=== PATIENT | male | born 1980 | race Caucasian/White ===

== ENCOUNTER 2019-02-01 09:03 | Day surgery (SDC) | payer OTHER, SELFPAY ==
[2019-01-21 11:51] VITALS: BMI 31.4
[2019-02-01] VITALS (9 sets, daily range): BP systolic 88–120; BP diastolic 52–72; PULSE 58–84; RESP 11–16; TEMP 36–36.7; O2SAT 73–99; BMI 31.4
[2019-02-01] MEDS: LACTATED RINGERS 1,000 ML 42 ML IV ×2 (09:40→12:29)
--- NOTE | 2019-02-01 09:50 | PM.PREOP ---
Pre-operative Note Interval Note History & Physical reviewed/Exam performed by Physician: Yes Changes to H&P: No
[2019-02-01] MEDS: MIDAZOLAM 2 MG/2 ML VIAL IV (10:30)
--- NOTE | 2019-02-01 10:44 | SUR.PREOP ---
Block start time [1030] . Monitoring initiated and maintained throughout procedure. Oxygen and medications given per anesthesiologist instructions. Patient remained stable throughout procedure, no adverse reactions noted. Block end time [1040].
[2019-02-01] MEDS: CEFAZOLIN 2 GM/100 ML FROZ.PIGGY IV (10:50)
--- NOTE | 2019-02-01 11:28 | SUR.OPER ---
Lateral on padded OR bed with downey bag positioner, head on pillow, gel axillary roll in place, bottom leg bent with gel pad under knee to foot, upper leg straight and supported with pillows. Operative arm secured in shoulder positioning suspension device. non-operative arm secured on padded arm board. Safety belt at hip, tape over blanket securing lower legs and abdomen and chest.
[2019-02-01] MEDS: BUPIVACAINE 0.5% W/ EPI (PF) VIAL 30 ML INJ (12:00)
[2019-02-01] MEDS: SODIUM CHLORIDE IRRIG SOLUTION 3,000 ML, EPINEPHrine 1 MG IRR (12:01)
--- NOTE | 2019-02-01 12:37 | PM.OP.1 ---
Operative Date/Time/Diagnoses Date of procedure: 02/01/19 Time of procedure: 12:20 Pre-op diagnosis: Right shoulder subscapularis tear with biceps subluxation Post-op diagnosis: same Procedure & Clinicians Procedure: 1. Right shoulder mini open biceps tenodesis 2. 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 His MRI reveals a tear of the upper subscapularis with dislocation of the biceps from the bicipital groove. He has agreed to the above-noted procedures after discussion the risks benefits and alternatives. Risks discussed included but were not limited to: Failure to improve pain or function, biceps deformity, nerve damage, stiffness, infection, deep venous thrombosis, pulmonary embolism, stroke, myocardial infarction, permanent paralysis and . Surgeon: Tobi Bui Material Analyst: Emilia Rodriguez Click Yes if Unassisted: No Anesthesia Type: General, Peripheral nerve block and Local Operative Notes Findings: 1. Normal glenohumeral cartilage 2. Mild degenerative fraying of the glenoid labrum 3. Intact glenohumeral ligaments 4. Tearing of the upper cm of the subscapularis 5. Subluxation and fraying of the biceps tendon 6. Intact supraspinatus 7. Intact infraspinatus 8. Normal axillary pouch 9. Bursoscopy was not performed as there were no indications Closure Type: primary Specimen(s): none sent Prosthetic devices, grafts, tissues, transplants, or devices: Implants used in this procedure included one Mitek Healix Advance BR 5.5 mm double threaded anchor and a 30 X 3.5 mm cortical Synthes screw with a small metal and larger plastic spiked soft tissue washer. Applied: implant(s) Estimated Blood Loss (mL): 15 Blood products transfused: none Procedure in detail: The patient was seen in the preoperative area where he identified the right shoulder as the operative site and this was marked with my initials. He received preoperative antibiotics and underwent an interscalene block. He was taken to the operating room and placed on the operating table in the supine position where he underwent a general anesthetic. His shoulder was then examined under anesthesia with findings of full range of motion and no evidence for pathologic laxity. He was subsequently repositioned the left lateral decubitus position with an axillary roll and padding for all pressure points. He was stabilized in this position with the downey bag and adhesive tape. The right arm was prepared from the fingertips to the base the neck with ChloraPrep in the usual fashion and draped through sterile drapes. The arm was then placed in 10 lb of balanced skin suspension. Subcutaneous landmarks were outlined on the skin with a marking pen and portal sites were selected. Posterior portal was created and the arthroscope inserted in the glenohumeral joint. Diagnostic arthroscopy ensued with result given above. After confirming the diagnosis an anterior superior portal was created in the rotator interval and a 5.5 mm working cannula inserted. The shaver and arthroscopic scissors were used to perform a biceps tenotomy. The rotator interval tissue was then excised to allow subscapularis repair. A 2nd, larger, 8.0 mm cannula was then inserted more medially in the rotator interval. The smaller initial cannula was used to place an anchor in the prepared upper lesser tuberosity. Using a penetrating suture grasper the sutures were placed through the subscapularis which was advanced into its anatomic footprint. The sutures were tied and cut. At this point all arthroscopic equipment was removed. The arm was taken out of traction and held in a fully supinated position. The upper portion of the biceps was palpated just as it went beneath the deltoid. A 1 in incision was created along the lower border of the deltoid. Muscle fascia was incised. The cephalic vein was identified retracted laterally. The biceps was identified and its tendon pulled into the distal wound. The anterior surface of the humerus was prepared to bare bone with an elevator and then the bur was used to create bleeding. The tendon was prepared by placing a ?rip stop? horizontal suture of #2 Ethibond just proximal to the anticipated placement of the screw at the musculotendinous junction. A drill hole was then placed in the humerus and measured. 4 mm of additional length was added to the mid screw measurement to account for the thickness of the tendon and the spikes on the washer. The screw along with the 2 washers mentioned above was then placed through a vertical incision in the tendon just below the rip stop suture and tightened into the prepared hole on the humerus. The wound was then copiously irrigated. The distal wound was closed with interrupted 3 O Vicryl. The subcutaneous layer was closed in all wounds with a 4 O Maxon. Steri-Strips were applied. The subcutaneous tissues and the biceps muscle itself were infiltrated with 0.5% Marcaine for postoperative pain control. The patient's wounds were then dressed with sterile 4x4s and adhesive dressings and his arm was placed in a sling. Complications: none Condition: stable Disposition: PACU Plan for aftercare: The patient will be maintained on a standard subscapularis repair protocol with the range of motion restrictions indicated in that protocol. He will be limited to lifting no more than 1 lb with this arm for the 1st 6 weeks.
--- NOTE | 2019-02-01 12:39 | SUR.OPER ---
red petechiae noted on right posterior chest from tape used for positioning. Dr. Bui and Emilia Rodriguez PA-c aware.
== END 2019-02-01 13:34 | disposition home or self-care (01) ==
PROVIDERS: Visit Provider Orthopaedic Surgery
PROC: (CPT 29805; principal; 2019-02-01 10:45)
PROC: (CPT 23430; 2019-02-01 10:45)
DX: M75.121 Complete rotator cuff tear or rupture of right shoulder, not specified as traumatic (principal); M75.21 Bicipital tendinitis, right shoulder; J45.909 Unspecified asthma, uncomplicated
CPT/HCPCS: 23430; 29827; 64415; J0171; J0690; J1100; J2250; J2405; J2704; J3010